=== PATIENT | male | born 1995 | race Caucasian/White ===

== ENCOUNTER 2018-01-14 15:07 | Emergency (ER) | payer SELFPAY ==
[~2018-01-14] VITALS: Ht 177.8 cm; Wt 92.3 kg
[2018-01-14 15:16] VITALS: TEMP 98.4
[2018-01-14 16:42] VITALS: BP 132/86; PULSE 80
== END 2018-01-14 16:43 | disposition home or self-care (01) ==
LOC: COL.ER 15:07
DX: S37.39XA Other injury of urethra, initial encounter (principal); W22.8XXA Striking against or struck by other objects, initial encounter